=== PATIENT | male | born 1960 | race Caucasian/White ===

== ENCOUNTER 2021-05-20 11:15 | Outpatient (CLI) | payer BC, SELFPAY ==
--- NOTE | 2021-05-20 11:22 | XR_ITS ---
WS: [id number] Lumbar spine, 3 views, 05/20/2021 Clinical Data: M54.50 - Low back pain, unspecified Comparison: None. Findings: No compression fractures or subluxation is seen. There is disc space narrowing at L5-S1 with anterior osteophyte formation.. The transverse processes and SI joints are normal. There is a large amount of fecal material throughout colon. XR/XR lumbar spine 2-3V* [id number] Impression: Degenerative disc narrowing at L5-S1 with anterior osteophytes.
--- NOTE | 2021-05-20 11:22 | XR_ITS ---
WS: [id number] Bilateral hips, AP and frog leg views, 05/20/2021 Clinical Data: M25.551 - Pain in right hip Comparison: None. Findings: Right hip: There are no fractures or dislocations. No bone destruction or erosion is seen. There is no narrowing , sclerosis or cyst formation of the right hip. The right SI joint and pubic symphysis are unremarkab le. The soft tissues are normal. Left hip: There are no fractures or dislocations. No bone destruction or erosion is seen. There is no narrowing , sclerosis or cyst formation of the left hip. The left SI joint and pubic symphysis are unremarkable . The soft tissues are normal. XR/XR hip BI 3-4V wo/w pel [id number] Impression: Negative bilateral hips.
== END 2021-05-20 11:16 | disposition home or self-care (01) ==
LOC: RAD 11:19
PROVIDERS: Visit Provider Nurse Practitioner Family
DX: M54.50 Low back pain, unspecified (principal); M25.551 Pain in right hip; M25.552 Pain in left hip
CPT/HCPCS: 72100; 73522

== ENCOUNTER 2023-09-26 12:38 | Emergency (ER) | payer BC, SELFPAY ==
--- NOTE | 2023-09-26 12:41 | XRR_ITS ---
PROCEDURE INFORMATION: Exam: XR Chest Exam date and time: 09/26/2023 1:09 PM Age: 62 years old Clinical indication: Pain; Patient HX: States the chest pressure comes and goes and sometimes radiates to R shoulder/arm; Additional info: Cp TECHNIQUE: Imaging protocol: Radiologic exam of the chest. Views: 1 view. COMPARISON: No relevant prior studies available. FINDINGS: Lungs: Unremarkable. No consolidation. Pleural spaces: Unremarkable. No pleural effusion. No pneumothorax. Heart/Mediastinum: Unremarkable. No cardiomegaly. Bones/joints: Unremarkable. XR/XR chest 1V portable [id number] IMPRESSION: No acute findings.
--- NOTE | 2023-09-26 12:41 | ECG_ITS ---
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 Measurements Intervals [place] Rate: 81 P: 83 TN: 170 QRS: -34 QRSD: 101 T: 61 QT: 369 QTc: 430 Interpretive Statements SINUS RHYTHM POSSIBLE RIGHT ATRIAL ENLARGEMENT [0.25mV P-WAVE] LEFT ATRIAL ENLARGEMENT [-0.15mV P-WAVE IN V1/V2] LEFT AXIS DEVIATION [QRS AXIS < -30] INCOMPLETE RIGHT BUNDLE BRANCH BLOCK [90+ ms QRS DURATION, TERMINAL R IN V1/V2, 40+ ms S IN I/aVL/V4/V5/V6] INTERPRETATION BASED ON A DEFAULT AGE OF 40 YEARS No previous ECG available for comparison Electronically Signed On 09-26-2023 15:26:19 MAT REPAIRER by Vaughn Márquez M.D. [id number]
[2023-09-26 12:49] VITALS: BP 124/76; PULSE 66; TEMP 36.4; O2SAT 98; BMI 23.7
[2023-09-26 13:17] LABS: Basophils % 0.2 %; Eosinophils % 0.2 %; Hematocrit 45.2 % (37-53); Lymphocytes # 1.6 10^3/uL (0.8-4.8); Lymphocytes % 18.3 %; Mean Corpuscular HGB Conc 34.3 g/dL (30-55); Mean Corpuscular Hemoglobin 31.6 pg (27-33); Mean Corpuscular Volume 92.1 fl (82-101); Monocytes # 0.8 10^3/uL (0.2-0.9); Monocytes % 9.1 %; Neutrophils # 6.41 10^3/uL (1.8-7.7); Nucleated Red Blood Cells % 0 %; Platelet Count 269 10^3/cmm (157-399); Red Blood Count 4.91 10^6/uL (3.85-5.65); Red Cell Distribution Width 14.3 % (12.1-15.1); White Blood Count 8.91 10^3/uL (3.29-11.43)
[2023-09-26 13:40] LABS: Troponin(5th) Baseline 13 ng/L (0-15)
[2023-09-26 13:42] LABS: Alanine Aminotransferase 11 U/L (0-41); Albumin Level 4.8 g/dL (3.5-5.2); Alkaline Phosphatase 69 U/L (40-130); Anion Gap 15.1 (5-19); Aspartate Amino Transferase 16 U/L (0-40); Blood Urea Nitrogen 9 mg/dL (8-23); Carbon Dioxide 23 mmol/L (22-29); Chloride 102 mmol/L (98-107); Globulin 2.3 g/dL (1.3-4.6); Glomerular Filtration Rate 136.1 mL/min (90-130); Glucose 100 mg/dL (65-115); Lipase 41 U/L (13-60); Osmolality Calculated 281 mOsm/kg (285-295); Potassium 4.1 mmol/L (3.5-5.1); Sodium 136 mmol/L (136-145); Total Bilirubin 0.7 mg/dL (0.15-1.2); Total Protein 7.1 g/dL (6.6-8.7)
[2023-09-26 13:44] LABS: Creatinine Clr Calc Pharmacy 147.7366
--- NOTE | 2023-09-26 14:41 | ECG_ITS ---
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 Measurements Intervals [place] Rate: 67 P: 60 SD: 173 QRS: -49 QRSD: 90 T: 52 QT: 382 QTc: 404 Interpretive Statements SINUS RHYTHM LEFT AXIS DEVIATION [QRS AXIS < -30] LOW QRS VOLTAGE IN EXTREMITY LEADS [QRS DEFLECTION < 0.5 mV IN LIMB LEADS] POSSIBLE RIGHT VENTRICULAR CONDUCTION DELAY [RSR (QR) IN V1/V2] Electronically Signed On 09-26-2023 15:27:37 SATURATION EQUIPMENT OPERATOR by Vaughn Márquez M.D. [id number]
--- NOTE | 2023-09-26 15:36 | ED_ITS ---
HPI - Chest Pain 2 General: Chief Complaint: Chest Pain Stated Complaint: sent over by dr chest tightness Time Seen by Provider: 09/26/23 15:33 History of Present Illness: 62-year-old male patient comes in today with complaints of shortness of breath and right shoulder pain on and off for the last 2 days. Patient reports that increased discomfort with exertion. Patient has no chronic medical problems. Patient does use cannabis daily. Review of Systems 2 General: Reports: 10 or more systems reviewed and unremarkable except in HPI and below PFSH ED 2 PFSH: Social History Smoking and tobacco/nicotine status: former use of tobacco/nicotine Second hand smoke exposure: No Alcohol intake: never Substance/Drug Use: never Adopted: No Caregiver/support person: No Lives independently: Yes Household members: spouse Housing: House Marital status: Number of children: 2 Highest education level completed: Associate Degree: Occupational, Technical, Vocational Program service: No Current occupational status: retired Physical Exam 2 Const: COMMON NORMALS: alert HENMT: COMMON NORMALS: normocephalic HEAD & SCALP: normocephalic Neck/C-Spine: COMMON NORMALS: full ROM Resp: COMMON NORMALS: normal respiratory effort and clear to auscultation bilaterally AUSCULTATION: clear to auscultation bilaterally Cardio: COMMON NORMALS: regular rate and regular rhythm RATE: regular rate RHYTHM: regular rhythm Back/Pelvis: COMMON NORMALS: thoracic and lumbar spine normal to inspection Extremity: COMMON NORMALS: normal to inspection Neuro: SENSORIUM/ORIENTATION: Yes alert Skin: COMMON NORMALS: turgor normal GENERAL SKIN EXAM: turgor normal Course 2 Vital Signs: Vital signs: Vital Signs Temperature 97.5 F L 09/26/23 12:49 Pulse Rate 59 L 09/26/23 16:17 Respiratory Rate 19 H 09/26/23 15:37 Blood Pressure 132/70 09/26/23 16:17 Pulse Oximetry 97 09/26/23 16:17 Oxygen Delivery Me thod Room Air 09/26/23 12:49 MDM - Chest Pain Medical Decision Making Patient comes in today for some increased shortness of breath and right shoulder pain with exertion for the last 2 days. Patient reports no chronic medical problems. Patient does daily use cannabis. Patient appears nontoxic. Respirations are even lungs are clear to auscultation. Skin is warm and dry. Vital signs are normal. Differential diagnosis includes ACS, anxiety, muscle strain, pneumothorax, stable angina. Chest x-ray was normal. CBC, CMP was normal. No changes was noted in the troponin at [address] elevation was noted on EKG. Reviewed exam with patient recommended follow-up with cardiology for further evaluation with a stress test. Recommend return to the ER for worsening symptoms such as severe shortness of breath or chest pain. No medications at this time. Encourage plenty of water and fluids. Encouraged limiting marijuana use. Patient reports understanding of care plan and agreed to plan. Lab Data 09/26/23 13:04 09/26/23 13:04 Radiology Impressions Chest X-Ray 09/26/23 12:41 IMPRESSION: No acute findings. Laboratory Results WBC 8.91 10^3/uL (3.29-11.43) 09/26/23 13:04 RBC 4.91 10^6/uL (3.85-5.65) 09/26/23 13:04 Hgb 15.50 g/dL (11.27-16.99) 09/26/23 13:04 Hct 45.2 % (37-53) 09/26/23 13:04 MCV 92.1 fl (82-101) 09/26/23 13:04 MCH 31.6 pg (27-33) 09/26/23 13:04 MCHC 34.3 g/dL (30-55) 09/26/23 13:04 RDW 14.3 % (12.1-15.1) 09/26/23 13:04 Plt Count 269 10^3/cmm (157-399) 09/26/23 13:04 MPV 10.0 fL (7.4-10.4) 09/26/23 13:04 Neut % (Auto) 72.0 % 09/26/23 13:04 Lymph % (Auto) 18.3 % 09/26/23 13:04 [place] % (Auto) 9.1 % 09/26/23 13:04 Eos % (Auto) 0.2 % 09/26/23 13:04 Baso % (Auto) 0.2 % 09/26/23 13:04 Neut # (Auto) 6.41 10^3/uL (1.8-7.7) 09/26/23 13:04 Lymph # (Auto) 1.6 10^3/uL (0.8-4.8) 09/26/23 13:04 [place] # (Auto) 0.8 10^3/uL (0.2-0.9) 09/26/23 13:04 Eos # (Auto) 0.0 10^3/uL (0.0-0.8) 09/26/23 13:04 Baso # (Auto) 0.0 10^3/uL (0.0-0.1) 09/26/23 13:04 Nucleated RBC % (auto) 0 % 09/26/23 13:04 Nucleated RBCs # 0.0 /100WBC 09/26/23 13:04 PT 13.50 SECONDS (12.1-14.9) 09/26/23 13:04 INR 1.00 (0.8-1.2) 09/26/23 13:04 Sodium 136 mmol/L (136-145) 09/26/23 13:04 Potassium 4.1 mmol/L (3.5-5.1) 09/26/23 13:04 Chloride 102 mmol/L (98-107) 09/26/23 13:04 Carbon Dioxide 23 mmol/L (22-29) 09/26/23 13:04 Anion Gap 15.1 (5-19) 09/26/23 13:04 BUN 9 mg/dL (8-23) 09/26/23 13:04 Creatinine 0.6 mg/dL (0.7-1.2) L 09/26/23 13:04 GFR Calculation 136.1 mL/min (90-130) H 09/26/23 13:04 Glucose 100 mg/dL (65-115) 09/26/23 13:04 Calculated Osmolality 281 mOsm/kg (285-295) L 09/26/23 13:04 Calcium 10.0 mg/dL (8.5-10.5) 09/26/23 13:04 Total Bilirubin 0.7 mg/dL (0.15-1.2) 09/26/23 13:04 AST 16 U/L (0-40) 09/26/23 13:04 ALT 11 U/L (0-41) 09/26/23 13:04 Alkaline Phosphatase 69 U/L (40-130) 09/26/23 13:04 Troponin T Baseline 13 ng/L (0-15) 09/26/23 13:04 Troponin T 120 Minute 7.72 ng/L (0-15) 09/26/23 15:06 Delta Troponin T -5.28 ABS# (0-10) L 09/26/23 15:06 Total Protein 7.1 g/dL (6.6-8.7) 09/26/23 13:04 Albumin 4.8 g/dL (3.5-5.2) 09/26/23 13:04 Globulin 2.3 g/dL (1.3-4.6) 09/26/23 13:04 Lipase 41 U/L (13-60) 09/26/23 13:04 All radiology interpretation(s) finalized by discharge Discharge Plan Discharge Patient Disposition: Home Clinical Impression: Chest pain Qualifiers: Chest pain type: unspecified Qualified Code(s): R07.9 - Chest pain, unspecified Condition: Stable Prescriptions: No Action cyclobenzaprine 10 mg tablet 10 mg PO BID PRN (Reason: muscle spasm) Qty: 20 0RF hydrocortisone [Proctosol HC] 2.5 % cream with perineal applicator 1 applic SD BID PRN (Reason: pain) Qty: 30 2RF Discharge Orders: Discharge ED (Routine); Ordered 09/26/23 Ordered By: Mani Rand Referrals: Elena Schmid FNP-C [Primary Care Provider] - Patient Instructions: Chest Pain (ED) Coding Level of Care Code ED Hydrodynamicist for Zeinab Ortega
[2023-09-26 15:37] VITALS: BP 124/82; PULSE 69; RESP 19; O2SAT 99
[2023-09-26 16:07] LABS: Troponin 5 2HR 7.72 ng/L (0-15)
[2023-09-26 16:11] LABS: Troponin 5 2HR Delta -5.28 ABS# (0-10)
[2023-09-26 16:17] VITALS: BP 132/70; PULSE 59; O2SAT 97
--- NOTE | 2023-09-27 08:29 | DCPLANNER ---
A message was sent to heart care on 09/27/23 at 0829. Clinic to contact patient.
== END 2023-09-26 16:18 | disposition home or self-care (01) ==
PROVIDERS: Emergency Medicine; Emergency Provider Nurse Practitioner Family; PCP Nurse Practitioner Family
DX: R07.9 Chest pain, unspecified (principal); Z87.891 Personal history of nicotine dependence
CPT/HCPCS: 36415; 71045; 80053; 83690; 84484; 85025; 85610; 93005; 99285

== ENCOUNTER 2023-09-27 13:00 | Outpatient (CLI) | payer BC, SELFPAY ==
--- NOTE | 2023-09-27 13:30 | US_ITS ---
WS: [id number] TESTICULAR ULTRASOUND HISTORY: N50.82 - Scrotal pain COMPARISON: None available. TECHNIQUE: Real-time and color Doppler imaging or utilized to perform a testicular ultrasound. Right testicle: 4.7 cm x 3.2 cm x 2.2 cm. Normal size and echogenicity. No mass or torsion. Normal color Doppler is present throughout. Systolic and diastolic velocities are both present. Small to moderate mildly complex RIGHT hydrocele. Low-level echoes within the hydrocele. Right epididymis: Normal epididymis with no increased vascularity. Left testicle: 4.2 cm x 3.3 cm x 1.9 cm. Normal size and echogenicity. No mass or torsion. Normal color Doppler is present throughout. Systolic and diastolic velocities are both present. Small simple hydrocele. Left epididymis: Normal epididymis with no increased vascularity. IMPRESSION: 1. No testicular mass or torsion. 2. Small to moderate mildly complex RIGHT hydrocele. 3. Small LEFT hydrocele.
== END 2023-09-27 13:01 | disposition home or self-care (01) ==
LOC: RAD 13:00
PROVIDERS: PCP Nurse Practitioner Family; Visit Provider Nurse Practitioner Family
DX: N50.82 Scrotal pain (principal); R10.30 Lower abdominal pain, unspecified; N43.3 Hydrocele, unspecified
CPT/HCPCS: 76870

== ENCOUNTER 2023-10-09 13:14 | Emergency (ER) | payer BC, SELFPAY ==
--- NOTE | 2023-10-09 13:16 | XRR_ITS ---
PROCEDURE INFORMATION: Exam: XR Chest Exam date and time: 10/09/2023 2:14 PM Age: 62 years old Clinical indication: Pain; Chest pressure; Additional info: Chest pain TECHNIQUE: Imaging protocol: Radiologic exam of the chest. Views: 1 view. COMPARISON: CR XR chest 1V portable [id number] 09/26/2023 1:09 PM FINDINGS: Lungs: Unremarkable. No consolidation. Pleural spaces: Unremarkable. No pleural effusion. No pneumothorax. Heart/Mediastinum: Unremarkable. No cardiomegaly. Bones/joints: Mild scoliosis. XR/XR chest 1V portable [id number] IMPRESSION: No acute disease.
--- NOTE | 2023-10-09 13:16 | ECG_ITS ---
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 Measurements Intervals [place] Rate: 73 P: 83 NV: 176 QRS: -7 QRSD: 96 T: 68 QT: 362 QTc: 399 Interpretive Statements SINUS RHYTHM POSSIBLE LEFT ATRIAL ENLARGEMENT [-0.1mV P-WAVE IN V1/V2] POSSIBLE RIGHT VENTRICULAR CONDUCTION DELAY [RSR (QR) IN V1/V2] Compared to ECG 09/26/2023 15:25:02 Left-axis deviation no longer present Electronically Signed On 10-09-2023 23:05:57 CDT by Luis Mcdaniel M.D. [id number]
[2023-10-09 13:17] VITALS: PULSE 70; RESP 16; TEMP 36.3; O2SAT 98
--- NOTE | 2023-10-09 13:32 | ED_ITS ---
HPI - Chest Pain 2 General: Chief Complaint: Chest Pain Stated Complaint: chest pressure Time Seen by Provider: 10/09/23 13:32 Source: patient Mode of arrival: ambulatory History of Present Illness: 62-year-old male presents emergency room with complaint of chest discomfort he states he feels like he is not getting enough oxygen to his extremities or anywhere else in his body. At times he feels short of breath he was seen 2 weeks ago with complaints of chest pain cardiac workup at that time in the emergency room was negative. Not had any fever sweats chills or productive cough no abdominal pain. He does not have any chest pain at this time. Does report some weight loss. No dysuria urgency or frequency. MD complaint: chest pain Onset (ago): month(s) Timing of current episode: episodic Severity: mild Quality: heaviness Associated symptoms: Deny abdominal pain, diaphoresis, dyspnea, fever(s), leg edema, nausea, palpitations, sense of impending doom, syncope or vomiting Review of Systems 2 Const: Denies: fever(s), chills or diaphoresis Card: Denies: chest pain, palpitations or syncope Resp: Denies: dyspnea GI: Denies: abdominal pain, nausea or vomiting : Denies: dysuria, urinary frequency or urinary urgency Musc: Denies: neck pain or back pain Skin/Breast: Denies: rash PFSH ED 2 PFSH: Medical History (Updated 10/09/23 @ 16:36 by Isreal Tran DO) No pertinent past medical history Surgical History (Updated 10/09/23 @ 13:33 by Isreal Tran DO) No significant past surgical history Social History Smoking and tobacco/nicotine status: former use of tobacco/nicotine Second hand smoke exposure: No Alcohol intake: never Substance/Drug Use: never Adopted: No Caregiver/support person: No Lives independently: Yes Household members: spouse Housing: House Marital status: Number of children: 2 Highest education level completed: Associate Degree: Occupational, Technical, Vocational Program service: No Current occupational status: retired Physical Exam 2 Const: COMMON NORMALS: no acute distress GENERAL APPEARANCE: cooperative and comfortable ORIENTATION/CONSCIOUSNESS: Yes awake, Yes oriented to person, Yes oriented to place and Yes oriented to time HENMT: COMMON NORMALS: normocephalic, atraumatic and hearing grossly normal bilaterally HEAD & SCALP: normocephalic and atraumatic Resp: COMMON NORMALS: normal respiratory effort, No retractions, No use of accessory muscles and clear to auscultation bilaterally AUSCULTATION: clear to auscultation bilaterally Cardio: COMMON NORMALS: regular rate, regular rhythm and No murmurs present (Cardio) RATE: regular rate RHYTHM: regular rhythm GI: COMMON NORMALS: Soft to palpation and No hepatosplenomegaly present A USCULTATION: Yes normoactive bowel sounds PALPATION: Yes Soft to palpation, No Tenderness to palpation present (GI), No Guarding due to palpation present (GI) and Yes No hepatosplenomegaly present Extremity: COMMON NORMALS: normal to inspection, capillary refill normal, no clubbing, cyanosis or edema, no calf tenderness and no pedal edema Neuro: SENSORIUM/ORIENTATION: Yes oriented to person, Yes oriented to place and Yes oriented to time Skin: COMMON NORMALS: no rashes or lesions noted GENERAL SKIN EXAM: no rashes or lesions noted Course 2 Vital Signs: Vital signs: Vital Signs Temperature 97.3 F L 10/09/23 16:45 Pulse Rate 68 10/09/23 16:45 Respiratory Rate 16 10/09/23 16:45 Blood Pressure 115/73 10/09/23 16:45 Pulse Oximetry 97 10/09/23 16:45 Oxygen Delivery Me thod Room Air 10/09/23 15:12 MDM - Chest Pain Medical Decision Making Labs and imaging reviewed. D-dimer is negative chest x-ray unremarkable troponins normal. EKG does not show any acute changes normal sinus rhythm with no ST segment changes. He has an upcoming appointment with cardiology recommend he keep that appointment. Blood gas when he first arrived shows that he was mildly hyperventilating resolved that while he was here. Encouraged follow-up with his primary care as well as cardiology Lab Data 10/09/23 13:55 10/09/23 13:55 Radiology Impressions Chest X-Ray 10/09/23 13:16 IMPRESSION: No acute disease. Laboratory Results WBC 7.93 10^3/uL (3.29-11.43) 10/09/23 13:55 RBC 4.75 10^6/uL (3.85-5.65) 10/09/23 13:55 Hgb 15.00 g/dL (11.27-16.99) 10/09/23 13:55 Hct 43.2 % (37-53) 10/09/23 13:55 MCV 90.9 fl (82-101) 10/09/23 13:55 MCH 31.6 pg (27-33) 10/09/23 13:55 MCHC 34.7 g/dL (30-55) 10/09/23 13:55 RDW 13.9 % (12.1-15.1) 10/09/23 13:55 Plt Count 281 10^3/cmm (157-399) 10/09/23 13:55 MPV 9.7 fL (7.4-10.4) 10/09/23 13:55 Neut % (Auto) 71.8 % 10/09/23 13:55 Lymph % (Auto) 18.0 % 10/09/23 13:55 [place] % (Auto) 9.3 % 10/09/23 13:55 Eos % (Auto) 0.3 % 10/09/23 13:55 Baso % (Auto) 0.3 % 10/09/23 13:55 Neut # (Auto) 5.70 10^3/uL (1.8-7.7) 10/09/23 13:55 Lymph # (Auto) 1.4 10^3/uL (0.8-4.8) 10/09/23 13:55 [place] # (Auto) 0.7 10^3/uL (0.2-0.9) 10/09/23 13:55 Eos # (Auto) 0.0 10^3/uL (0.0-0.8) 10/09/23 13:55 Baso # (Auto) 0.0 10^3/uL (0.0-0.1) 10/09/23 13:55 Nucleated RBC % (auto) 0 % 10/09/23 13:55 Nucleated RBCs # 0.0 /100WBC 10/09/23 13:55 D-Dimer 0.31 ug/mLFEU (0-0.59) 10/09/23 13:55 Specimen Type Arterial 10/09/23 13:55 Sample Site Radial, left 10/09/23 13:55 ABG pH 7.50 (7.35-7.45) H 10/09/23 13:55 ABG pCO2 29.1 mmHg (35-45) L 10/09/23 13:55 ABG pO2 91.9 mmHg (80.0-100.0) 10/09/23 13:55 ABG PO2/FiO2 Ratio 0 10/09/23 13:55 ABG HCO3 22.7 mmol/L (22-26) 10/09/23 13:55 ABG O2 Saturation 98.8 10/09/23 13:55 ABG Base Excess 0.6 mmol/L (-2.0-2.0) 10/09/23 13:55 Lizandro Test Pos 10/09/23 13:55 A-a O2 Gradient 2.5 mmHg (5-10) L 10/09/23 13:55 Hematocrit 46.9 % (42-52) 10/09/23 13:55 Hgb O2 Saturation 97.2 % (95-100) 10/09/23 13:55 Carboxyhemoglobin 0.8 %THgb (0.4-20.1) 10/09/23 13:55 Methemoglobin 0.8 % (0.4-1.5) 10/09/23 13:55 Total Hemoglobin 15.3 g/dL (14-18) 10/09/23 13:55 Sodium 139.0 mmol/L (131-143) 10/09/23 13:55 Potassium 3.8 mmol/L (3.5-5.0) 10/09/23 13:55 Glucose 115.0 mg/dL (70-115) 10/09/23 13:55 Ionized Calcium 1.3 mmol/L (1.1-1.4) 10/09/23 13:55 O2 Delivery Device Room air 10/09/23 13:55 FiO2 21.0 % 10/09/23 13:55 Sales Engagement Executive ID [place] 10/09/23 13:55 Sodium 137 mmol/L (136-145) 10/09/23 13:55 Potassium 3.7 mmol/L (3.5-5.1) 10/09/23 13:55 Chloride 102 mmol/L (98-107) 10/09/23 13:55 Carbon Dioxide 20 mmol/L (22-29) L 10/09/23 13:55 Anion Gap 18.7 (5-19) 10/09/23 13:55 BUN 12 mg/dL (8-23) 10/09/23 13:55 Creatinine 0.7 mg/dL (0.7-1.2) 10/09/23 13:55 GFR Calculation 113.9 mL/min (90-130) 10/09/23 13:55 Glucose 118 mg/dL (65-115) H 10/09/23 13:55 Calculated Osmolality 285 mOsm/kg (285-295) 10/09/23 13:55 Calcium 9.6 mg/dL (8.5-10.5) 10/09/23 13:55 Total Bilirubin 0.5 mg/dL (0.15-1.2) 10/09/23 13:55 AST 14 U/L (0-40) 10/09/23 13:55 ALT 13 U/L (0-41) 10/09/23 13:55 Alkaline Phosphatase 64 U/L (40-130) 10/09/23 13:55 Troponin T Baseline 9 ng/L (0-15) 10/09/23 13:55 Troponin T 120 Minute 8.70 ng/L (0-15) 10/09/23 15:42 Delta Troponin T -0.30 ABS# (0-10) L 10/09/23 15:42 Total Protein 7.0 g/dL (6.6-8.7) 10/09/23 13:55 Albumin 4.4 g/dL (3.5-5.2) 10/09/23 13:55 Globulin 2.6 g/dL (1.3-4.6) 10/09/23 13:55 All radiology interpretation(s) finalized by discharge Discharge Plan Discharge Patient Disposition: Home Clinical Impression: Atypical chest pain, Acute dyspnea Condition: Stable Prescriptions: No Action Pepto-Bismol 262 mg/15 mL Suspension 524 mg PO .ONE TIME DOSE Discharge Orders: Discharge ED (Routine); Ordered 10/09/23 Ordered By: Isreal Tran Referrals: Elena Schmid FNP-C [Primary Care Provider] - Discharge Diet: Usual diet Discharge Activity: Increase activity as tolerated Patient Instructions: Opioid Safety, Pain Management Activity Restrictions/Additional Instructions: Thank you for choosing [facility] for your healthcare needs today. Please realize this is an emergency room and that we are providing you with a medical screening exam and this may not be complete and all inclusive of all the testing and or work up that you may need to determine your ailment or severity of your illness. It is very important that you follow up as instructed or that you return to the Emergency Department should you have concerns or if your condition changes or worsens in any way. You were seen today with complaints of abdominal discomfort and vague chest [place] going on for the last several weeks. Your EKGs and cardiac enzymes were normal. All your other lab work was normal as well. Your blood gas did show that you had been mildly hyperventilating on arrival here. This could contribute to some of your symptoms. Case management will help make arrangements for you to establish with a primary care physician. Coding Level of Care Code ED Director Of Instruction for Zeinab Ortega
[2023-10-09 13:47] VITALS: BP 131/85; PULSE 77; O2SAT 99
[2023-10-09 14:03] VITALS: PULSE 71; O2SAT 96
[2023-10-09 14:05] LABS: Basophils % 0.3 %; Eosinophils % 0.3 %; Hematocrit 43.2 % (37-53); Lymphocytes # 1.4 10^3/uL (0.8-4.8); Mean Corpuscular HGB Conc 34.7 g/dL (30-55); Mean Corpuscular Hemoglobin 31.6 pg (27-33); Mean Corpuscular Volume 90.9 fl (82-101); Mean Platelet Volume 9.7 fL (7.4-10.4); Monocytes # 0.7 10^3/uL (0.2-0.9); Monocytes % 9.3 %; Neutrophils % 71.8 %; Nucleated Red Blood Cells % 0 %; Platelet Count 281 10^3/cmm (157-399); Red Blood Count 4.75 10^6/uL (3.85-5.65); Red Cell Distribution Width 13.9 % (12.1-15.1); White Blood Count 7.93 10^3/uL (3.29-11.43)
[2023-10-09 14:06] LABS: ABG PCO2 29.1 mmHg (35-45); Alveolar-Arterial Oxygen Gradi 2.5 mmHg (5-10); Arterial Blood Gas Hematocrit 46.9 % (42-52); Base Excess ABG 0.6 mmol/L (-2.0-2.0); Blood Gas Allen Test Pos; Blood Gas Operator Identificat WALCI; Blood Gas Sample Site Radial, left; Blood Gas Sample Type Arterial; Carboxyhemoglobin 0.8 %THgb (0.4-20.1); HCO3 ABG 22.7 mmol/L (22-26); HGB O2 Sat 97.2 % (95-100); Ionized Calcium Level - ABG 1.3 mmol/L (1.1-1.4); Methemoglobin 0.8 % (0.4-1.5); Oxygen Device ROOM AIR; Oxygen Saturation ABG 98.8; PO2 ABG 91.9 mmHg (80.0-100.0); PO2 FiO2 Ratio Arterial Blood 0; Potassium Level - ABG 3.8 mmol/L (3.5-5.0); Total Hemoglobin 15.3 g/dL (14-18)
[2023-10-09 14:32] LABS: Troponin(5th) Baseline 9 ng/L (0-15)
[2023-10-09 14:38] LABS: Alanine Aminotransferase 13 U/L (0-41); Albumin Level 4.4 g/dL (3.5-5.2); Alkaline Phosphatase 64 U/L (40-130); Anion Gap 18.7 (5-19); Aspartate Amino Transferase 14 U/L (0-40); Blood Urea Nitrogen 12 mg/dL (8-23); Calcium 9.6 mg/dL (8.5-10.5); Carbon Dioxide 20 mmol/L (22-29); Chloride 102 mmol/L (98-107); Creatinine Clr Calc Pharmacy 103.9485; Globulin 2.6 g/dL (1.3-4.6); Glomerular Filtration Rate 113.9 mL/min (90-130); Glucose 118 mg/dL (65-115); Osmolality Calculated 285 mOsm/kg (285-295); Potassium 3.7 mmol/L (3.5-5.1); Sodium 137 mmol/L (136-145); Total Bilirubin 0.5 mg/dL (0.15-1.2)
[2023-10-09 15:12] VITALS: BP 115/73; PULSE 68; O2SAT 97
--- NOTE | 2023-10-09 15:16 | ECG_ITS ---
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 Measurements Intervals [place] Rate: 60 P: 66 CO: 171 QRS: 29 QRSD: 96 T: 68 QT: 417 QTc: 418 Interpretive Statements SINUS RHYTHM Compared to ECG 10/09/2023 13:16:31 No significant changes Electronically Signed On 10-09-2023 23:22:14 CDT by Luis Mcdaniel M.D. [id number]
[2023-10-09 15:31] LABS: D Dimer 0.31 ug/mLFEU (0-0.59)
[2023-10-09 16:45] VITALS: BP 115/73; PULSE 68; RESP 16; TEMP 36.3; O2SAT 97
--- NOTE | 2023-10-10 07:31 | DCPLANNER ---
Message sent to [facility] to establish a PCP.
== END 2023-10-09 16:50 | disposition home or self-care (01) ==
PROVIDERS: Physician Assistant; Emergency Provider Family Medicine; PCP Nurse Practitioner Family
DX: R07.89 Other chest pain (principal); R06.00 Dyspnea, unspecified; Z87.891 Personal history of nicotine dependence
CPT/HCPCS: 36415; 36600; 71045; 80051; 80053; 82330; 82805; 84484; 85025; 85378; 93005; 99285

== ENCOUNTER 2023-10-29 14:57 | Outpatient (CLI) | payer BC, SELFPAY ==
--- NOTE | 2023-10-29 15:15 | USCV_ITS ---
Miguel Bell Age: 62 Gender: M : 1960 Exam Date: 10/29/2023 15:21 Ordering Phys: Elena Schmid Technologist: CLAIRE [place] [facility] [place]: SOB BP: 118 / 72 HR: 167 Rhythm: Sinus Technical Quality: Adequate MEASUREMENTS (Male / Female) Normal Values 2D ECHO LV Diastolic Diameter PLAX 4.5 cm 4.2 - 5.9 / 3.9 - 5.3 cm IVS Diastolic Thickness 0.6 cm 0.6 - 1.0 / 0.6 - 0.9 cm IVS Systolic Thickness 0.7 cm LVPW Diastolic Thickness 0.6 cm 0.6 - 1.0 / 0.6 - 0.9 cm LVPW Systolic Thickness 1.3 cm LVOT Diameter 2.0 cm LV Ejection Fraction 2D Teich 50.2 % LV Ejection Fraction MOD 2C 48.4 % LV Ejection Fraction 2C AL 49.1 % LA Diameter 2.5 cm RA Systolic Volume 4C AL 22.9 ml RA Systolic Volume 4C MOD 22.7 ml Aorta at Sinotubular Diameter 3.0 cm IVC Diameter 1.7 cm M-MODE LA Ao Ratio MM 1.1 AV Cusp Separation MM 1.7 cm DOPPLER AV Peak Velocity 79.0 cm/s LVOT Peak Velocity 70.0 cm/s AV Area Cont Eq vti 2.9 cm squared AV Area Cont Eq pk 2.8 cm squared MV Peak Velocity 72.0 cm/s MV Area PHT 2.8 cm squared Mitral E to A Ratio 0.9 TV Peak Velocity 88.2 cm/s TR Peak Velocity 104.0 cm/s TR Peak Gradient 4.3 mmHg TR Mean Velocity 76.0 cm/s TR Mean Gradient 2.6 mmHg TR Velocity Time Integral 20.8 cm TV Peak E Velocity 73.0 cm/s PV Peak Velocity 67.5 cm/s RV Ejection Time 0.3 s FINDINGS Left Ventricle Left ventricle is normal in size. LV systolic function is mildly reduced with EF of 45 to 50%. Mild global hypokinesis. Right Ventricle Normal in size and function. Moderator band is seen Right Atrium Normal in size Left Atrium Normal in size Mitral Valve Structurally normal mitral valve. Trace mitral regurgitation Aortic Valve Grossly normal. Doppler signals very limited, can not assess for aortic stenosis or regurgitation. Tricuspid Valve Mild tricuspid regurgitation. Insufficient TR jet to calculate RVSP. Pulmonic Valve Not well visualized Pericardium Normal Aorta Normal in size IVC Appears to be normal CONCLUSIONS LV systolic function is mildly reduced with EF of 45-50% Trace mitral regurgitation. Mild tricuspid regurgitation. No comparison studies are available. Vaughn Márquez MD (Electronically Signed) Final Date: 04 November 2023 12:35 S
== END 2023-10-29 14:58 | disposition home or self-care (01) ==
LOC: RAD 14:57
PROVIDERS: PCP Nurse Practitioner Family; Visit Provider Nurse Practitioner Family
DX: I07.1 Rheumatic tricuspid insufficiency (principal)
CPT/HCPCS: 93306

== ENCOUNTER 2023-11-29 10:02 | Outpatient (CLI) | payer BC, SELFPAY ==
[2023-11-29 10:24] VITALS: BMI 21.1
--- NOTE | 2023-11-29 10:25 | NMCV_ITS ---
NM barbra perf SPECT r/s* [id number] Miguel Bell Age: 62 Gender: M : 1960 Exam Date: 11/29/2023 11:05 Ordering Phys: Luis Mcdaniel MD ([email or web address]) Technologist: MAKAYLA Gómez Exam Location: [facility] Indications: CHEST PAIN STRESS TEST [facility] IMAGE PROTOCOL Rest/Stress 1 Exercise Day Radiopharmaceutical Dose (mCi) Administration Site Administered by Rest: Tc-99m 10.5 IV MAKAYLA Gómez Sestamibi Stress:Tc-99m 33.0 IV MAKAYLA Manning Sestamibi Rest: 29-Nov-2023 60 Discovery 630 Stress: 29-Nov-2023 15 Discovery 630 Radiopharmaceutical was injected at 91 % maximum heart rate. Images obtained in supine and prone position. SPECT RESULTS Technical Quality: Excellent Raw Data Analysis: Normal Image Corrections: No attenuation or motion correction applied Summed Stress Score: 5 Summed Rest Score: 10 Summed Difference Score: 1 PERFUSION FINDINGS There is a moderate area of minimal to moderately decreased tracer uptake involving the mid and apical inferior, mid inferolateral and apical lateral regions. Small area of reversibility was noted in the apical lateral region. FUNCTIONAL RESULTS (calculated via Gated SPECT) Stress Image LV EF (%): 73 Stress EDV (mL):105 TID: 0.87 Stress ESV (mL):28 FUNCTIONAL FINDINGS: Segmental wall motion analysis revealing no gross wall motion abnormalities IMPRESSIONS 1. Myocardial perfusion imaging revealing moderate area of minimal to moderately decreased persistent tracer uptake involving the inferior, inferolateral and apical regions with a small area of reversibility suggesting myocardial scarring distribution of the right coronary artery/ left circumflex artery with a small area of ischemia mainly in the distribution of the circumflex artery. Normal LV ejection fraction 73% LV wall motion analysis revealing no gross wall motion abnormalities. Normal LV volume No similar previous studies are available for comparison Dr Luis Mcdaniel MD FAC (Electronically Signed) Final Date: 29 Nov 2023 16:23 S
--- NOTE | 2023-11-29 10:25 | ECG_ITS ---
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 Interpretive Statements NAME OF STUDY: EXERCISE SESTAMIBI STRESS TEST INDICATION: Chest Pain PROCEDURE: The baseline electrocardiogram showed possible sinus rhythm with a poor R wave progression. Frequent supraventricular ectopics. Heavy baseline artifact were noted. At the baseline, the patient's blood pressure was 115/77 mm Hg with a heart rate of 75. The patient exercised for 5 minutes and 56 seconds on a standard Curt protocol. Patient attained a maximum heart rate of 147 beats per minute(93% of the maximum predicted heart rate) with a blood pressure at the peak exercise of 127/86 mm Hg. The EKG at the peak exercise revealed possibly no significant changes. Because of the heavy artifacts the EKG is somewhat uninterpretable. Patient did not have any chest pain or any significant arrhythmis with the exercise Sestamibi was injected 1 minute prior to the peak exercise During the recovery phase, there were no new changes. Blood pressure at the end of the recovery phase was 143/65 mm Hg with a heart rate of 92 per minute. CONCLUSION: 1. No significant EKG changes with the [treadmill exercise 2. No exercise-induced chest pain or cardiac arrhythmia 3. Impaired exercise tolerance, attained a maximum of 7.0 METs 4. Sestamibi/Sestamibi perfusion results pending; see separate report. Electronically Signed On 12-02-2023 19:21:38 CDT by Luis Mcdaniel M.D. [email or web address]
[2023-11-29 12:17] VITALS: BP 143/65; PULSE 92
== END 2023-11-29 10:03 | disposition home or self-care (01) ==
PROVIDERS: PCP Nurse Practitioner Family; Visit Provider Internal Medicine Cardiovascular Disease
DX: R07.9 Chest pain, unspecified (principal)
CPT/HCPCS: 36415; 78452; 93017; A9500

== ENCOUNTER 2023-12-27 10:10 | Outpatient (CLI) | payer BC, SELFPAY ==
[2023-12-27 11:22] LABS: Basophils % 0.3 %; Eosinophils # 0.1 10^3/uL (0.0-0.8); Eosinophils % 1.8 %; Hematocrit 42.4 % (37-53); Lymphocytes % 28.9 %; Mean Corpuscular HGB Conc 34.4 g/dL (30-55); Mean Corpuscular Hemoglobin 32.5 pg (27-33); Mean Corpuscular Volume 94.4 fl (82-101); Mean Platelet Volume 10.2 fL (7.4-10.4); Monocytes # 0.7 10^3/uL (0.2-0.9); Monocytes % 10.9 %; Neutrophils # 3.95 10^3/uL (1.8-7.7); Neutrophils % 57.8 %; Nucleated Red Blood Cells % 0 %; Platelet Count 265 10^3/cmm (157-399); Red Blood Count 4.49 10^6/uL (3.85-5.65); Red Cell Distribution Width 14.6 % (12.1-15.1); White Blood Count 6.82 10^3/uL (3.29-11.43)
[2023-12-27 11:34] LABS: INR 0.93 (0.8-1.2)
[2023-12-27 11:57] LABS: Alanine Aminotransferase 17 U/L (0-41); Albumin Level 4.3 g/dL (3.5-5.2); Alkaline Phosphatase 72 U/L (40-130); Anion Gap 14.8 (5-19); Aspartate Amino Transferase 16 U/L (0-40); Blood Urea Nitrogen 11 mg/dL (8-23); Calcium 9.3 mg/dL (8.5-10.5); Carbon Dioxide 26 mmol/L (22-29); Chloride 102 mmol/L (98-107); Chol HDL Ratio 3.75 mg/dL (1.0-5.00); Cholesterol 199 mg/dL (0-200); Globulin 2.7 g/dL (1.3-4.6); Glomerular Filtration Rate 135.6 mL/min (90-130); Glucose 118 mg/dL (65-115); HDL Cholesterol 53 mg/dL (60-100); LDL Cholesterol Calculated 107 mg/dL (50-129); LDL HDL Ratio 2.02 RATIO (0.00-3.22); Osmolality Calculated 288 mOsm/kg (285-295); Potassium 3.8 mmol/L (3.5-5.1); Sodium 139 mmol/L (136-145); Total Bilirubin 0.4 mg/dL (0.15-1.2); Triglycerides 195 mg/dL (0-150)
== END 2023-12-27 10:11 | disposition home or self-care (01) ==
LOC: LAB 10:11
PROVIDERS: PCP Nurse Practitioner Family; Visit Provider Internal Medicine Cardiovascular Disease
DX: Z79.01 Long term (current) use of anticoagulants (principal); R06.02 Shortness of breath; I48.91 Unspecified atrial fibrillation; E78.5 Hyperlipidemia, unspecified; I25.118 Atherosclerotic heart disease of native coronary artery with other forms of angina pectoris
CPT/HCPCS: 36415; 80048; 80061; 80076; 85025; 85610; 86850; 86900

== ENCOUNTER 2024-01-01 05:50 | Outpatient (CLI) | payer BC, SELFPAY ==
[2024-01-01] VITALS (25 sets, daily range): BP systolic 97–124; BP diastolic 65–80; PULSE 56–66; RESP 10–20; TEMP 36.4; O2SAT 93–98; BMI 21.1
--- NOTE | 2024-01-01 06:00 | XACV_ITS ---
Exam Room: 2 Ht: 185 cm Wt: 73 kg BSA: 1.93 m2 Gender: Male : 1960 Any Known Allergies: No known allergies Exam Priority: Routine Procedure(s): Procedure Description: Diagnostic procedure Jonas BROWER; Diagnostic Cath Status: Elective Diagnostic Findings * The left main is a medium caliber vessel with no significant dyspnea or lesions. Mild to moderate coronary calcification is noted. * The left anterior descending artery is a medium caliber vessel which appears to wraparound the LV apex minimally. At the takeoff of the first diagonal branch, the artery appears to have a 50% tubular narrowing. Moderate coronary calcification also was noted in this area. The first diagonal branch is a small to medium caliber vessel with minimal intimal irregularities. * The left circumflex artery is a small to medium caliber nondominant vessel which was found to have tubular narrowing of around 40 to 50% near the ostium. No other significant lesions were noted. * The right coronary artery is a medium to large caliber dominant vessel which was found to have had a 50 to 60% segmental narrowing proximally. Mild to moderate diffuse calcification was noted in the proximal segment of the artery. The distal artery before the terminal bifurcation was found to have around 40% stenosis. Minimal intimal area values were noted on the PLV and the PDA branch of the artery. Interventional Findings * IFR proximal RCA 0.96. Conclusions 1. 63-year-old white male with a history of smoking abuse/drug abuse, presented with complaints of chest pain. The Myocardial perfusion imaging revealed moderate area of fixed defect with small area of reversible defect in the distribution of the left circumflex/right coronary artery. The echocardiogram revealed LV ejection fraction of 45 to 50%. Mild diffuse hypokinesia of the left-ventricular was noted. In view of the patient's ongoing symptoms, in order to further evaluate his coronary status, a cardiac catheterization was recommended.. 2. Patient underwent left heart catheterization with left and right coronary angiogram and LV angiogram today. The coronary angiogram revealed around 50% mid LAD lesion at the takeoff of the first diagonal branch. 50 to 60% lesion in the proximal right coronary artery. Mild diffuse disease in the other vessels. Mild to moderate coronary calcification in the proximal segments of the l left main, eft anterior descending artery and the right coronary artery. LV ejection fraction was around 50% with an EDP of 90 mmHg.. 3. I reviewed and discussed the cardiac catheterization data with the Dr. Villeda. In view of the patient's symptoms and the abnormal objective findings, it was thought to be appropriate to consider IFR of the proximal RCA lesion. The IFR was found to be in the normal range. Based on this, it was decided to treat him medically.. Diagnostic RX Recommendation: medical therapy and/or counseling Ventriculography Ejection Fraction: 50.0 % Left Ventriculography Findings: * LV gram was performed the TALBOT projection. The LV cavity appears to be normal size. There is mild diffuse hypokinesia of the anteroapical region. The overall ejection fraction was around 50%. No filling defects were noted. No significant mitral valve prolapse or mitral regurgitation. The LVEDP was 19 mmHg. Following the LV angiogram , the LVEDP was 23 mmHg.. Pressures Phase:Rest AO : 116 / 71 ( 94 ) @ 8:30:00 AM 119 / 70 ( 94 ) @ 8:30:00 AM 107 / 66 ( 86 ) @ 8:41:00 AM LV : 128 / -1 / 19 @ 8:29:00 AM 124 / 3 / 23 @ 8:29:00 AM 124 / 4 / 23 @ 8:30:00 AM Valves Phase:DefaultPhase AV : 0.0 @ 8:00:34 AM 0.0 @ 8:00:34 AM AV Mean Gradient: 0.0 @ 8:00:34 AM 0.0 @ 8:00:34 AM Clinical Evaluation EBL: 5mL-10mL Procedural Details Pre-Procedure Time Out. Identified patient by full name and date of as verbalized by the patient/guarantor. Does the consent match the physician's order: Yes. Accurate & Complete Informed Consent: Yes. Inpatient/Outpatient History & Physical on Chart: Yes. If H&P is completed, is and addenduem needed: No; If yes, is the addendum complete: N/A. Visualize and Verify Site with Patient/Guarantor: N/A. Relevant Radiology Images available: Yes. Pre-op teaching completed and patient verbalized understanding. The risks, benefits, and alternatives of sedation and/or procedure were discussed by physician. The patient agrees to continue. Procedure started. [facility] Clinical Fraility Score: 3: Managing Well. Spin Table Operator Indications: Suspected CAD. Chest Pain Symptom Assessment: Typical Angina Symptoms. Correct patient, site and procedure confirmed by cath team. Current diagnosis: Chest Pain. PERRLA. 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 Lungs clear x 5 lobes. IV Site on Arrival: 20 gauge in the left anticubital. IV Fluids: 0.9% NaCl at KVO. 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 Pre Procedural Pulses: bilateral dorsalis pedis was 3+. Pre Procedural Pulses: bilateral posterior tibial was 2+. Pre Procedural Pulses: bilateral radial was 2+. Oxygen started at 2liters/min via nasal canula. right groin was prepped with chloroprep then draped in the usual sterile fashion. right radial was prepped with chloroprep then draped in the usual sterile fashion. Baseline sample Acquired. HR: 102 BPM. Physician arrived. Admit Source: Out Patient. Current Diagnosis : Chest Pain. Physician scrubbed in. Immediate Pre-Procedure Time Out. Correct Patient: Yes; Correct Procedure: Yes; Correct Site: Yes; Correct Patient Position: Yes; Correct Supplies: Yes; Dried Flammable Prep: Yes; Blood Products Available: N/A;. Lidocaine 1% infiltrated to the right radial. Arterial access obtained. A 5 british Raúl catheter in over wire. Multiple views taken of left coronary artery. Catheter redirected to the RCA. Catheter removed over the exchange wire. A 5 british JR4 catheter in over wire. Multiple views taken of right coronary artery. Catheter removed over the exchange wire. A 5 british Angled Pig catheter in over wire. Dr. Villeda called to review films. EDP Sample taken: LV 128/-2,19; HR: 74 BPM; SpO2: Off%. LV gram performed in TALBOT @ 10 mL/second for a total of 30 mL. EDP Sample taken: LV 124/3,23; HR: 70 BPM; SpO2: 97%. Pullback taken: LV 124/4,23; AO 116/71(94); Mean: 0mmHg, Peak to Peak: 0mmHg, SEP: 13sec/min; HR: 64 BPM; SpO2: 97%. Catheter removed over the exchange wire. Dr. Villeda arrived. Dr. Mcdaniel scrubbed out. Patient's family updated. Dr. Villeda scrubbed in. 6 british JR 4 guide catheter was inserted over the wire. IFR guidewire was advanced through the guide catheter to lesion in the prox RCA. IFR Results: 0.96. Wire out. Guide catheter out. Total IV fluids: 280 mL. Medication's Wasted: Other = Fentanyl 75mcg. Medication's Wasted: Heparin = 1000 units. Medication's Wasted: Nitro = 49.9 mcg. Medication's Wasted: Lidocaine 1% = 18 mL. A TR Band was successful obtaining hemostatsis at the Right Radial artery insertion site. Complications: None. Estimated blood loss: 5mL-10mL. Responsiveness - Normal response to verbal stimuli; alert and oriented, PERRLA. Airway - Unaffected, no intervention required; spontaneous ventilation. Circulation: W/N/L, pulses unchanged. Nausea/Vomiting: No. Procedure completed. Patient transferred by wheelchair to CPRU. Vital chart was stopped. Access Site Site: Right Radial artery Sheath Size: 6 Fr Hemostasis Method: TR Band Hemostasis Success: Successful Procedure Medications Start: 7:06 AM Stop: 7:06 AM Medication: Versed Amount: 1 mg Route: I.V. Start: 7:07 AM Stop: 7:07 AM Medication: Fentanyl Amount: 25 mcg Route: I.V. Start: 7:13 AM Stop: 7:13 AM Medication: Verapamil Amount: 5 mg Route: I.A. Start: 7:13 AM Stop: 7:13 AM Medication: Nitrogylcerin Amount: 100 mcg Route: I.A. Start: 7:13 AM Stop: 7:13 AM Medication: 0.9% Saline Amount: 250 ml Route: I.V. bolus Start: 7:17 AM Stop: 7:17 AM Medication: Heparin Amount: 5000 units Route: I.V. Start: 7:34 AM Stop: 7:34 AM Medication: Versed Amount: 1 mg Route: I.V. I, the attending physician, have reviewed and verified all procedure medications. Yes, all medications given per verbal order History/Risk Factors Hypertension: Yes Dyslipidemia: No Peripheral Arterial Disease (PAD): No Myocardial Infarction (LA): No Obesity: No Renal Disease: No Tobacco Use: Former Prior Interventions PCI: No CABG: No Valve Surgery: No Report Signatures Diagnostic Workflow Finalized by Dr Luis Mcdaniel MD [facility] on 01/01/2024 01:56 PM Interventional Workflow Finalized by Dr. Arjun Villeda MD on 01/01/2024 07:53 AM
[2024-01-01] MEDS: diphenhydrAMINE 50 mg Capsule PO (06:30)
--- NOTE | 2024-01-01 06:56 | P.HPUD_ITS ---
Surgery/Procedure H&P Update DATE OF PROCEDURE: January 01, 2024 DATE H&P PERFORMED: 12/17/23 H&P UPDATE INFORMATION: I have reviewed H&P completed within last 30 days, I have examined patient prior to procedure and No changes to prior documentation PREOP DIAGNOSIS: ASHD PRIMARY INDICATION FOR PROCEDURE: Chest pain/abnormal myocardial perfusion imaging/abnormal echocardiogram PLANNED PROCEDURE: Operation Date: 01/01/24 07:00 Proposed Procedures p Cardiac Catheterization 64941, I42.8, R94.39(Left) - Luis Mcdaniel MD PATIENT REASSESSED PRIOR TO SEDATION, WITH NO CHANGE NOTED: Yes PHYSICAL EXAM: alert, oriented x 3, clear to auscultation bilaterally and regula r rate & rhythm AIRWAY EVAL/ANESTHESIA PLAN: normal airway, see other exam findings, ASA III, Monitored Anesthesia, Local Anesthesia, Risks, benefits & alternatives of sedation and/or procedure discussed and Patient agrees to continue as planned
--- NOTE | 2024-01-01 08:01 | PC.NURSE ---
2nd TR band Upon arrival to CPRU nickel size hematoma noted above TR band. Hematoma expressed and 2nd TR band applied with 10 ml air. Pt educated on reportable signs and symptoms, verbalized understanding.
--- NOTE | 2024-01-01 12:19 | PC.NURSE ---
TR band Removal 2nd TR band removed at 0900. Started releasing air out of primary TR band at 0930. 1-2ml air released every 10-15 minutes . TR band deflated at 1145. Small bruising noted from when hematoma present on arrival to unit, area is soft and non-tender. No new development of bleeding or hematoma with removal of primary TR band. Radial pulse palpable.
== END 2024-01-01 13:35 | disposition home or self-care (01) ==
PROVIDERS: Internal Medicine; PCP Nurse Practitioner Family; Visit Provider Internal Medicine Cardiovascular Disease
DX: I25.10 Atherosclerotic heart disease of native coronary artery without angina pectoris (principal); Z79.82 Long term (current) use of aspirin; Z87.891 Personal history of nicotine dependence; I42.8 Other cardiomyopathies; F12.10 Cannabis abuse, uncomplicated; K21.00 Gastro-esophageal reflux disease with esophagitis, without bleeding; R03.0 Elevated blood-pressure reading, without diagnosis of hypertension; I10 Essential (primary) hypertension
CPT/HCPCS: 93458; 93571; 96374; 96375; 99152; 99153; C1769; C1887; C1894; J1644; J2250; J3010; J3490; J7030; Q0163; Q9967

== ENCOUNTER → 2024-04-01 10:36 | Outpatient (BNVA) | payer BC, SELFPAY | PROVIDERS: PCP Nurse Practitioner Family; Visit Provider Nurse Practitioner Family | DX: E78.5 Hyperlipidemia, unspecified (principal) | CPT/HCPCS: 80061 ==

== ENCOUNTER → 2024-12-01 10:46 | Outpatient (BNVA) | payer MEDICARE, SELFPAY | PROVIDERS: PCP Nurse Practitioner Family; Visit Provider Internal Medicine Cardiovascular Disease | DX: I42.8 Other cardiomyopathies (principal); I25.10 Atherosclerotic heart disease of native coronary artery without angina pectoris; R03.0 Elevated blood-pressure reading, without diagnosis of hypertension; K21.00 Gastro-esophageal reflux disease with esophagitis, without bleeding; E78.5 Hyperlipidemia, unspecified; Z87.891 Personal history of nicotine dependence | CPT/HCPCS: 99214 ==

== ENCOUNTER → 2024-12-09 12:57 | Outpatient (BNVA) | payer MEDICARE, SELFPAY | PROVIDERS: PCP Nurse Practitioner Family; Visit Provider Nurse Practitioner Family | DX: E78.5 Hyperlipidemia, unspecified (principal); I25.10 Atherosclerotic heart disease of native coronary artery without angina pectoris | CPT/HCPCS: 80053; 80061; 84443; 85025 ==

== ENCOUNTER 2025-02-26 06:02 | Outpatient (CLI) | payer MEDICARE, SELFPAY ==
--- NOTE | 2025-02-26 06:15 | USCV_ITS ---
Miguel Bell Age: 64 Gender: M : 1960 Exam Date: 02/26/2025 06:21 Ordering Phys: Luis Mcdaniel MD ([email or web address]) Technologist: [place] [facility] [place]: cp sob BP: 120 / 70 HR: 59 Rhythm: Sinus Technical Quality: Adequate MEASUREMENTS (Male / Female) Normal Values 2D ECHO LV Diastolic Diameter PLAX 4.5 cm 4.2 - 5.9 / 3.9 - 5.3 cm IVS Diastolic Thickness 1.3 cm 0.6 - 1.0 / 0.6 - 0.9 cm IVS Systolic Thickness 1.6 cm LVPW Diastolic Thickness 1.1 cm 0.6 - 1.0 / 0.6 - 0.9 cm LVPW Systolic Thickness 1.7 cm LVOT Diameter 2.0 cm LV Ejection Fraction 2D Teich 47.6 % LV Ejection Fraction MOD 4C 50.1 % LV Ejection Fraction MOD 2C 66.8 % LV Ejection Fraction 2C AL 68.0 % LA Diameter 3.5 cm RA Systolic Volume 4C AL 46.7 ml RA Systolic Volume 4C MOD 43.1 ml Aorta at Sinotubular Diameter 2.6 cm IVC Diameter 1.7 cm M-MODE LA Ao Ratio MM 1.5 AV Cusp Separation MM 2.5 cm DOPPLER AV Peak Velocity 149.0 cm/s LVOT Peak Velocity 102.0 cm/s AV Area Cont Eq vti 2.2 cm squared AV Area Cont Eq pk 2.2 cm squared MV Peak Velocity 97.0 cm/s MV Area PHT 2.8 cm squared Mitral E to A Ratio 0.8 TV Peak Velocity 188.5 cm/s TR Peak Velocity 230.0 cm/s TR Peak Gradient 21.2 mmHg TV Peak E Velocity 77.0 cm/s PV Peak Velocity 136.0 cm/s FINDINGS Left Ventricle Normal left ventricular size and systolic function, EF 67%. No gross wall motion abnormalities.mild left ventricular hypertrophy. Grade I/IV diastolic dysfunction (abnormal relaxation filling pattern), normal to mildly elevated filling pressures. Right Ventricle Normal right ventricular size and systolic function. Right Atrium The right atrium is normal in size. Left Atrium The left atrium is normal in size. Mitral Valve Trace mitral valve regurgitation. Aortic Valve No gross abnormalities noted Tricuspid Valve No gross abnormalities noted Pulmonic Valve No gross abnormalities noted Pericardium No pericardial effusion. Aorta Normal aortic annulus size. IVC Normal inferior vena cava. CONCLUSIONS Normal left ventricular size and systolic function, EF 67%. No gross wall motion abnormalities.mild left ventricular hypertrophy. Grade I/IV diastolic dysfunction (abnormal relaxation filling pattern), normal to mildly elevated filling pressures. Trace mitral valve regurgitation. No gross valvular abnormalities. Normal cardiac chamber sizes. There is no pericardial effusion. There are no intracardiac masses. Compared to the study from 10/29/2023, there is improvement of the LV ejection fraction Dr Luis Mcdaniel MD FACC (Electronically Signed) Final Date: 02 March 2025 08:06 S
== END 2025-02-26 06:03 | disposition home or self-care (01) ==
LOC: RAD 06:02
PROVIDERS: PCP Nurse Practitioner Family; Visit Provider Internal Medicine Cardiovascular Disease
DX: I51.89 Other ill-defined heart diseases (principal); I35.1 Nonrheumatic aortic (valve) insufficiency; I42.2 Other hypertrophic cardiomyopathy
CPT/HCPCS: 93306

== ENCOUNTER → 2025-06-03 10:52 | Outpatient (BNVA) | payer MEDICARE, SELFPAY | PROVIDERS: PCP Nurse Practitioner Family; Visit Provider Internal Medicine Cardiovascular Disease | DX: I42.9 Cardiomyopathy, unspecified (principal); I25.10 Atherosclerotic heart disease of native coronary artery without angina pectoris; E78.5 Hyperlipidemia, unspecified; K21.9 Gastro-esophageal reflux disease without esophagitis; Z79.82 Long term (current) use of aspirin; Z87.891 Personal history of nicotine dependence | CPT/HCPCS: 99214 ==